=== PATIENT | male | born 1980 | race Caucasian/White ===

== ENCOUNTER 2018-01-06 13:05 | Outpatient (CLI) | payer OTHER ==
--- NOTE | 2018-01-06 15:34 | XRAY Report ---
COMPLETE LUMBAR SPINE: 01/06/2018 CLINICAL INDICATION: Pain, spondylolisthesis. COMPARISON: 01/09/2012. FINDINGS: AP, lateral, oblique, coned down views of the lumbar spine demonstrate normal height and alignment of the vertebral bodies. Left L5 pars defect is stable. There is no evidence of interval fracture. The bowel gas pattern is normal. IMPRESSION: STABLE LEFT L5 PARS DEFECT. NO SIGNIFICANT INTERVAL CHANGE. TD: 01/06/2018 15:33
--- NOTE | 2018-01-06 15:36 | XRAY Report ---
TWO VIEW RIGHT KNEE: 01/06/2018 CLINICAL INDICATION: Pain, foreign body. FINDINGS: Frontal and lateral views of the right knee demonstrate no evidence of acute fracture or dislocation. The joint spaces are preserved. A metallic foreign body is noted in the right popliteal fossa, just inferior from the tibial articular surface. IMPRESSION: METALLIC FOREIGN BODY POSTERIOR TO THE PROXIMAL TIBIA. TD: 01/06/2018 15:35
== END 2018-01-06 13:06 | disposition home or self-care (01) ==
LOC: DI 13:05
PROVIDERS: ATTEND Family Medicine
DX: M43.06 Spondylolysis, lumbar region (principal); S81.041 Puncture wound with foreign body, right knee
CPT/HCPCS: 72110